=== PATIENT | female | born 2000 | race Caucasian/White ===

== ENCOUNTER 2025-10-23 10:58 | Outpatient (OUT) | payer OTHER, SELFPAY ==
--- OUTSIDE RECORDS SUMMARY | 2025-10-10 14:15 | XMS_ITS | Encounter Summary ---
Author Organization [facility] Address [address] [place] [address] Phone Care Team Providers Care Laundry Pricing Clerk Name Role Phone Shailesh Young MD Primary Care Provider Reason for Referral * Consultation (Routine) - AuthorizedSpecialtyDiagnoses / ProceduresReferred By ContactReferred To ContactCardiology Diagnoses Postural dizziness with near syncope Procedures Follow Up In Cardiology Olga Wilkinson MD [address] [place] [address] Phone: tel: fax: Olga Wilkinson MD [address] [place] [address] Phone: tel: fax: Referral IDStatusReasonStart DateExpiration DateVisits RequestedVisits [id number]/5/202512/5/202611 Reason for Visit * ReasonCommentsFollow-upTilt table test results * Consultation (Routine) - AuthorizedSpecialtyDiagnoses / ProceduresReferred By ContactReferred To ContactCardiology Diagnoses Postural dizziness with near syncope Procedures Follow Up In Cardiology Olga Wilkinson MD [address] [place] [address] Phone: tel: fax: Olga Wilkinson MD [address] [place] [address] Phone: tel: fax: Referral IDStatusReEmmett DateExpiration DateVisits RequestedVisits [id number]/6/202510/6/202611 Encounter Details DateTypeDepartmentCare Team (Latest Contact Info)Bepycdotnvr61/05/2025 2:15 PM ESTOffice [facility] at [facility] [address] [facility] [address] [place] [address] Olga Wilkinson MD [address] [facility] [address] [place] [address] Postural dizziness with near syncope; Encounter to discuss test results; Medication course changed; Other fatigue; Dizziness; Clammy sweat; Never smoked tobacco; Body mass index (BMI) of 20.0 to 20.9 in adult Discharge Disposition: Home Social History Tobacco UseTypesPacks/DayYears UsedDateSmoking Tobacco: NeverSmokeless Tobacco: Current Comments:Vape Alcohol UseStandard Drinks/WeekCommentsNever0 (1 standard drink = 0.6 oz pure alcohol)CommentsUnknownSex and Gender InformationValueDate RecordedSex Assigned at BirthNot on fileLegal HpvFpdawg40/26/2022 2:57 PM ESTGender Identity Not on fileSexual OrientationNot on filedocumented as of this encounter Last Filed Vital Signs Vital SignReadingTime TakenCommentsBlood Hbgfarws419/6610/10/2025 2:39 PM EST Qkvka954710/10/2025 2:10 PM ESTTemperature--Respiratory Rate--Oxygen Saturation-- Inhaled Oxygen Concentration--Folyhh62.9 kg (110 lb)10/10/2025 2:10 PM ESTHeight 157.5 cm (5' 2 )10/10/2025 2:10 PM ESTBody Mass Index20.12112/11/2024 2:10 PM EST documented in this encounter Functional Status * PulseAnswerDate of BvlulaejnqFlxcnc7324/05/2025 2:10 PM Fiorella Lugo MA documented as of this encounter Patient Instructions * Patient Instructions* Ann Head LPN - 10/10/2025 2:15 PM EST Please bring all medicines, vitamins, and herbal supplements with you when you come to the office. Prescriptions will not be filled unless you are compliant with your follow up appointments or have a follow up appointment scheduled as per instruction of your physician. Refills should be requested at the time of your visit. START Lexapro 5mg daily for 2 weeks and may increase 10mg daily if needed. START Vitramin b12 1000mcg daily-over the counter. START Magnesium Oxide 400mg daily-over the counter. documented in this encounter Progress Notes * Olga Wilkinson MD - 10/10/2025 2:15 PM EST Images from the original note were not included. Chief Complaint: Chief Complaint Patient presents with Follow-up Tilt table test results Subjective : Patient is accompanied by her to the office. Review of Systems continues to have palpitations lightheadedness presyncope and extreme fatigue. Has increased dietary sodium intake. Does not really want to take salt tablets, she says she cannot tolerate salt tablets History so Far : 1.Palpitations dizziness presyncope syncope starting at age 17, increasing in frequency and intensity, sometimes associated with chest tightness/heaviness. 2. Echocardiogram December 2023-LVEF 65??5% normal RV systolic function thickening of the anterior mitral valve leaflet without definite prolapse, trivial to mild posteriorly directed mitral regurgitation. RV systolic pressure 31 mmHg 48 the report says that she has 1+ holosystolic mitral regurgitation which is posteriorly directed, and there is moderate thickening and mild prolapse of the anterior mitral leaflet 3. Echocardiogram 2020-LVEF 61% normal chamber dimensions mildly thickened mitral leaflets mild prolapse of the anterior mitral leaflet mild posteriorly directed mitral regurgitation 4. Tilt table test August 2025-patient developed syncope following sublingual nitroglycerin, and her heart rate increased from 100 bpm to 154 bpm with an abrupt drop in blood pressure. Test is consistent with POTS syndrome. Objective Wt Readings from Last 3 Encounters: 10/10/25 49.9 kg (110 lb) 08/11/25 48.1 kg (106 lb) Vitals: 10/10/25 1410 10/10/25 1439 BP: 112/62 106/66 BP Location: Left arm Right arm Patient Position: Sitting Standing Pulse: 72 Weight: 49.9 kg (110 lb) Height: 1.575 m (5' 2 ) Physical Exam: GENERAL APPEARANCE: in no acute distress. CHEST: Symmetric and non-tender. INTEGUMENT: Skin warm and dry HEENT: No gross abnormalities identified.No pallor or scleral icterus. NECK: Supple, no JVD, no bruit. NEURO/PSHCY: Alert and oriented x3; appropriate behavior and responses and responses LUNGS: Clear to auscultation bilaterally; normal respiratory effort. HEART: Rate and rhythm regular with no evident murmur; no gallop appreciated. ABDOMEN: Soft, non tender. MUSCULOSKELETAL: No gross deformities. EXTREMITIES: Warm There is no edema noted. Meds: Current Outpatient Medications Medication Instructions fludrocortisone (FLORINEF) 0.1 mg, 3 times daily Allergies: Penicillins LABS: Testing Reviewed Labs Reviewed all available pertinent laboratory data and diagnostic testing results that occurred afterthe last office visit with me Assessment: 1. Postural dizziness with near syncope Follow Up In Cardiology 2. Encounter to discuss test results 3. Medication course changed 4. Other fatigue 5. Dizziness 6. Clammy sweat 7. Never smoked tobacco 8. Body mass index (BMI) of 20.0 to 20.9 in adult Clinical Decision Making: At this point, patient is already on Florinef. She is not orthostatic in the office however she complains of profound fatigue, and ongoing symptoms of postural lightheadedness and presyncope. We will initiate escitalopram 5 mg p.o. daily for 2 weeks, after which she can increase to 10 mg daily. Escitalopram can sometimes help with POTS. Patient reports that her family members have all responded to escitalopram for depression Vitamin B12 1000 mcg p.o. daily Magnesium oxide 400 mg p.o. daily She may benefit from a low-dose of a stimulant to treat her profound fatigue, I defer that to Dr. Young for to psychiatry if she can get psychiatry appointment. Follow up : 6 weeks I, Ann B. JET ENGINE MECHANIC am scribing for, and in the presence of Dr. Olga Wilkinson MD, FACC. I, Dr. Olga Wilkinson MD, FACC, personally performed the services described in the documentation as scribed by Ann Peterson LPN in my presence, and confirm it is both accurate and complete. documented in this encounter Plan of Treatment DateTypeDepartmentCare Team (Latest Contact Info)Mwnpyvnerlq46/16/2026 3:00 PM ESTOffice Visit at [facility] [address] [facility] [address] [place] [address] Olga Wilkinson MD [address] [facility] [address] [place], [place] [id number] NameTypePriorityAssociated DiagnosesOrder ScheduleVitamin Z97AidTbpkznz Postural dizziness with near syncope Other fatigue Dizziness Clammy sweat Expected: 10/10/2025 (Approximate), Expires: 10/10/2026documented as of this encounter Visit Diagnoses Diagnosis Postural dizziness with near syncope Encounter to discuss test results Other specified counseling Medication course changed Other fatigue Dizziness Dizziness and giddiness Clammy sweat Never smoked tobacco Body mass index (BMI) of 20.0 to 20.9 in adult documented in this encounter Additional Health Concerns AssessmentNoted TimeA fall risk assessment has been completed for the patient 08/11/2025 11:26 AM EDTdocumented as of this encounter Care Teams Team MemberRelationshipSpecialtyStart DateEnd Date Shailesh Young MD [address] [place] [address] PCP - GeneralFamily Zuhajyav67/6/25documented as of this encounter
--- OUTSIDE RECORDS SUMMARY | 2025-10-23 08:30 | XMS_ITS | Encounter Summary ---
Author Organization [facility] Address [address] [place] [address] Care Team Providers Care Head Start Teacher Name Role Phone Unavailable Primary Care Provider Unavailabl e Reason for Visit * ReasonCommentsConsult Encounter Details DateTypeDepartmentCare Team (Latest Contact Info)Jpwxrmeqemj21/18/2025 8:30 AM ESTOffice Visit [facility] [address] [place] [address] Shreya Freitas NP [address] [facility] [place] [address] Menorrhagia with regular cycle; Other fatigue; Pelvic pain; Dyspareunia in female Social History Tobacco UseTypesPacks/DayYears UsedDateSmoking Tobacco: NeverSmokeless Tobacco: NeverCommentsNoSex and Gender InformationValueDate RecordedSex Assigned at BirthNot on fileLegal OweRmythm22/15/2023 6:57 PM EDTGender IdentityNot on fileSexual OrientationNot on filedocumented as of this encounter Last Filed Vital Signs Vital SignReadingTime TakenCommentsBlood Lqlmyzqd87/50112/24/2024 8:47 AM EST Pulse--Temperature--Respiratory Rate--Oxygen Saturation--Inhaled Oxygen Concentration--Fmcusn17.4 kg (109 lb)10/23/2025 8:47 AM ESTHeight--Body Mass Index19.9410/26/2021 12:00 PM ESTdocumented in this encounter Progress Notes * Shreya Freitas NP - 10/23/2025 8:30 AM EST Reason for Appointment: Patient ID: Mary Cazares is a 25 y.o. female who presents for Consult Patient presents today for Acute Visit. MEDICATIONS Current Outpatient Medications Medication Instructions fludrocortisone (FLORINEF) 0.1 mg, 3 times daily ALLERGIES Allergies Allergen Reactions Penicillin G Diphenhydramine Hives Amoxicillin Hives and Unknown Penicillins Hives Other Reaction(s): Unknown Other reaction(s): Unknown Other reaction(s): Unknown Other reaction(s): Unknown PROBLEMS Active Ambulatory Problems Diagnosis Date Noted No Active Ambulatory Problems Resolved Ambulatory Problems Diagnosis Date Noted No Resolved Ambulatory Problems No Additional Past Medical History HISTORY PAST MEDICAL HISTORY SOCIAL HISTORY No past medical history on file. Social History Tobacco Use Smoking status: Never Smokeless tobacco: Never Substance Use Topics Alcohol use: Not on file Drug use: Not on file FAMILY HISTORY No family history on file. SURGICAL HISTORY Past Surgical History: Procedure Laterality Date TONSILLECTOMY REVIEW OF SYSTEMS Review of Systems: Review of Systems Constitutional: Negative. HENT: Negative. Eyes: Negative. Respiratory: Negative. Cardiovascular: Negative. Gastrointestinal: Negative. Genitourinary: Positive for menstrual problem, pelvic pain and vaginal bleeding. Musculoskeletal: Negative. Skin: Negative. Neurological: Negative. All other systems reviewed and are negative. Hematological: Negative. Endocrine: Negative. Allergic/Immunologic: Negative. OBJECTIVE Objective: Physical Exam Constitutional: Appearance: Normal appearance. She is well-developed. Cardiovascular: Rate and Rhythm: Normal rate and regular rhythm. Pulmonary: Effort: Pulmonary effort is normal. Breath sounds: Normal breath sounds. Abdominal: General: Bowel sounds are normal. There is no distension. Palpations: Abdomen is soft. Tenderness: There is no abdominal tenderness. There is no guarding or rebound. Musculoskeletal: General: No swelling. Normal range of motion. Right lower leg: No edema. Left lower leg: No edema. Neurological: Mental Status: She is alert and oriented to person, place, and time. Skin: General: Skin is warm and dry. Psychiatric: Mood and Affect: Mood normal. Behavior: Behavior normal. Vitals and nursing note reviewed. Exam conducted with a christian science reader present. Vitals: Estimated body mass index is 19.94 kg/m?? as calculated from the following: Height as of 10/26/21: 5' 2 . Weight as of this encounter: 109 lb. BP: 92/50 No LMP recorded. Assessment/Plan ICD-10-CM 1. Menorrhagia with regular cycle N92.0 CBC and differential TSH hCG, quantitative, Protime-INR T4, free APTT Hemoglobin A1c APTT 2. Other fatigue R53.83 3. Pelvic pain R10.20 US Pelvis w/ TV 4. Dyspareunia in female N94.10 Assessment/Plan Patient with complaint of irregular menstrual cycles and heavy cycles. She has some complaints of intermittent pelvic pain. She would like to trial the twirla patch and will obtain baseline labs and pelvic ultrasound. Patient will return in 4 weeks for well woman exam and pap and to review results of labs and ultrasound. Documented by Shreya Freitas NP on behalf of: Shreya Freitas NP documented in this encounter Plan of Treatment DateTypeDepartmentCare Team (Latest Contact Info)Sgstxmivilc09/04/2026 9:00 AM ESTProcedure Visit [facility] [address] [place] [address] Shreya Freitas NP [address] [facility] [place] [address] NameTypePriorityAssociated DiagnosesOrder ScheduleCBC and differentialLabRoutine Menorrhagia with regular cycle Ordered: 10/23/2025TSHLabRoutine Menorrhagia with regular cycle Ordered: 10/23/2025hCG, quantitative, pregnancyLabRoutine Menorrhagia with regular cycle Ordered: 10/23/2025Protime-INRLabRoutine Menorrhagia with regular cycle Ordered: 10/23/2025T4, freeLabRoutine Menorrhagia with regular cycle Ordered: 10/23/2025PTTLabRoutine Menorrhagia with regular cycle Expected: 10/23/2025 (Approximate), Expires: 10/23/2026Hemoglobin Y7gJdpWleauie Menorrhagia with regular cycle Ordered: 10/23/2025US Pelvis w/ TVImagingRoutine Pelvic pain Expected: 10/23/2025, Expires: 10/23/2026documented as of this encounter Visit Diagnoses Diagnosis Menorrhagia with regular cycle Other fatigue Pelvic pain Dyspareunia in female documented in this encounter
--- NOTE | 2025-10-23 11:09 | US_ITS ---
The [address] [address] Patient Name: WASHINGTON HENDERSON MRN: [id number] date: 2000 Sex: F Assigned Patient Location: US Current Patient Location: US Accession/Order Number: [id number] Exam Date: 10/23/2025 11:10 Report Date: 10/23/2025 11:46 At the request of: CHETAN DEXTER Procedure: US pelvis w/ transvaginal ULTRASOUND PELVIS WITH TRANSVAGINAL CLINICAL DATA: Abnormal menses COMPARISON: None Real-time ultrasound evaluation of the pelvis was performed utilizing both a transabdominal and transvaginal approach. TRANSABDOMINAL: Estimated uterine size is approximately 6.7 x 4.0 x 5.7 cm. The endometrial lining is estimated at 4-5 mm. No focal myometrial abnormalities are seen. The right ovary is not definitely identified. The left ovary is visualized. No adnexal cysts are noted. TRANSVAGINAL: Transvaginal imaging was performed to better evaluate the uterus and adnexa. By this approach, there are no focal myometrial abnormalities. The endometrial lining is estimated at 4 - 5 mm. Both ovaries are seen. The right ovary measures 2.3 x 1.9 x 2.0 cm. There are small follicles. The left ovary measures 3.1 x 2.0 x 2.1 cm. There are additional follicles measuring up to 14 mm in size. There is documentation of ovarian blood flow. No free fluid is seen. US/US pelvis w/ transvaginal IMPRESSION: WITHIN NORMAL LIMITS. Impression dictated by: Janna Marino M.D. 10/23/2025 11:46 AM Dictation Location: [place] [address] Electronically authenticated by: [id number] Y Date: 10/23/2025 11:46
--- OUTSIDE RECORDS SUMMARY | 2025-10-23 11:09 | XMS_ITS | Encounter Summary ---
Author Organization [facility] Address [address] [facility] [place] [address] Care Team Providers Care Superintendent Menagerie Name Role Phone Unavailable Primary Care Provider Unavailabl e Encounter Details DateTypeDepartmentCare Team (Latest Contact Info)Oyfaeomhurb61/18/2025amboo flowsheet [facility] [address] [facility] [address] [address] Shreya Freitas, CALENDER SUPERVISOR [address] [facility] [place] [address] Social History Tobacco UseTypesPacks/DayYears UsedDateSmoking Tobacco: NeverSmokeless Tobacco: NeverCommentsNoSex and Gender InformationValueDate RecordedSex Assigned at BirthNot on fileLegal MkhSdoroh35/15/2023 6:57 PM EDTGender IdentityNot on fileSexual OrientationNot on filedocumented as of this encounter Plan of Treatment DateTypeDepartmentCare Team (Latest Contact Info)Duorcrbmlrp46/04/2026 9:00 AM ESTProcedure Visit [facility] [address] [address] [address] Shreya Freitas, [place] [address] [facility] [place] [address] documented as of this encounter Visit Diagnoses Not on filedocumented in this encounter
--- OUTSIDE RECORDS SUMMARY | 2025-10-23 11:09 | XMS_ITS | Encounter Summary ---
Author Organization [facility] Address [address] [place] [address] Phone Care Team Providers Care Photostat Operator Name Role Phone Shailesh Young MD Primary Care Provider Encounter Details DateTypeDepartmentCare Team (Latest Contact Info)Zfufapvtyvo93/05/2025Travel Social History Tobacco UseTypesPacks/DayYears UsedDateSmoking Tobacco: NeverSmokeless Tobacco: Current Comments:Vape Alcohol UseStandard Drinks/WeekCommentsNever0 (1 standard drink = 0.6 oz pure alcohol)CommentsUnknownSex and Gender InformationValueDate RecordedSex Assigned at BirthNot on fileLegal PtfZsszuu89/26/2022 2:57 PM ESTGender Identity Not on fileSexual OrientationNot on filedocumented as of this encounter Functional Status * Communicable Disease ScreeningQuestionAnswerDate of AssessmentAuthorDo you have any of the following new or worsening symptoms?None of these10/10/2025 2:01 PM Prema [place] documented as of this encounter Plan of Treatment DateTypeDepartmentCare Team (Latest Contact Info)Uomrvfybbms92/16/2026 3:00 PM ESTOffice Visit [facility] [address] [facility] [address] [place] [address] Olga Wilkinson MD [address] [facility] [address] [place] [address] documented as of this encounter Visit Diagnoses Not on filedocumented in this encounter Additional Health Concerns AssessmentNoted TimeA fall risk assessment has been completed for the patient 08/11/2025 11:26 AM EDTdocumented as of this encounter Care Teams Team MemberRelationshipSpecialtyStart DateEnd Date Shailesh Young MD [address] [place] [address] PCP - GeneralFamily Iryyvphl77/6/25documented as of this encounter
--- OUTSIDE RECORDS SUMMARY | 2025-10-23 11:09 | XMS_ITS | Clinical Summary ---
Author Organization [facility] Address [address] [facility], [address] [place] [address] Care Team Providers Care Bitumen Plant Operator Name Role Phone Eliz Young DC Primary Care Provider Unavailab le Allergies Active AllergyReactionsCriticalityNoted QuyqEdekeladYasnhujxmxmNgmov51/24/2021 IzkiikfnugdQlizf16/24/2021 Social History Tobacco UseTypesPacks/DayYears UsedDateSmoking Tobacco: NeverSmokeless Tobacco: NeverAlcohol UseStandard Drinks/WeekCommentsNever0 (1 standard drink = 0.6 oz pure alcohol)CommentsNoSex and Gender InformationValueDate RecordedSex Assigned at BirthNot on fileLegal BqrGrrsub57/24/2021 2:49 PM EDTGender Identity Not on fileSexual OrientationNot on file Last Filed Vital Signs Vital SignReadingTime TakenCommentsBlood Euwpelin671/7209 3:04 PM EDT Uqrgc87043/24/2021 3:04 PM UZAZavakwhaayq58.4 ??C (97.5 ??F)07/30/2021 3:04 PM EDTRespiratory Zoix662607/30/2021 3:04 PM EDTOxygen Dffpudmcfe53%07/30/2021 3:04 PM EDTInhaled Oxygen Concentration--Smciqi05.1 kg (97 lb 4.8 oz)07/30/2021 3:04 PM PXGMlmgsz498.5 cm (5' 2 )07/30/2021 3:04 PM EDTBody Mass Index17.809 3:04 PM EDT Plan of Treatment Not on file Insurance Care Teams Team MemberRelationshipSpecialtyStart DateEnd Date Eliz Young DC PCP - [facility]07/30/21
--- OUTSIDE RECORDS SUMMARY | 2025-10-23 11:09 | XMS_ITS | Clinical Summary ---
Author Organization [facility] Address [address] [place] [address] Phone Care Team Providers Care Match Up Worker Name Role Phone Shailesh Young MD Primary Care Provider Allergies Active AllergyReactionsCriticalityNoted DateCommentsPenicillinsHivesHigh 07/08/2019 Other reaction(s): Unknown Other reaction(s): Unknown Other Reaction(s): Unknown Other reaction(s): Unknown Other reaction(s): Unknown Other reaction(s):Unknown Other reaction(s): Unknown Medications MedicationSigDispense QuantityRefillsLast FilledStart DateEnd DateStatus fludrocortisone (Florinef) 0.1 mg tablet Take 1 tablet (0.1 mg) by mouth 3 times a day.10/13/2023ctive escitalopram (Lexapro) 5 mg tablet Indications:Postural dizziness with near syncopeTake 1 tablet (5 mg) by mouth once daily. 90 tablet ctive sodium chloride 1,000 mg tablet Indications:Postural dizziness with near syncope,Syncope, unspecified syncope type,DizzinessTake 2 tablets (2 g) by mouth 2 times a day. 360 tablet Discontinued(Therapy completed) Active Problems ProblemNoted DateDiagnosed DateBody mass index (BMI) of 20.0 to 20.9 in adult 10/10/2025Medication course hutkwzo9110/10/2025ody mass index (BMI) 19.9 or less, adult08/11/20255771Tjrdqzmge29/06/2025Postural dizziness with near obkubwf7908/11/2025 Encounter to discuss test jjsrupu8908/11/2025Never smoked loxvmse9708/11/2025Other rilbuhv2108/11/2025lammy sweat08/11/20256223Exefgxv68/06/2025 Resolved Problems ProblemNoted DateDiagnosed DateResolved DateHistory of cvpukqu3308/11/2025 08/11/2025 Encounters DateTypeDepartmentCare OcazAkakoamruvm65/05/2025 2:15 PM ESTOffice Visit [facility] [address] [place] [phone] Olga Wilkinson MD Postural dizziness with near syncope; Encounter to discuss test results; Medication course changed; Other fatigue; Dizziness; Clammy sweat; Never smoked tobacco; Body mass index (BMI) of 20.0 to 20.9 in adult Discharge Disposition: Home10/10/20259279Iyhcxf26/22/2025Orders Only [facility] [address] [place] [address] Olga Wilkinson MD 08/11/2025 11:15 AM EDTOffice Visit [facility] [address] [address] Olga Wilkinson MD Encounter to establish care; Postural dizziness with near syncope; Syncope, unspecified syncope type; Dizziness; Clammy sweat; Other fatigue; Body mass index (BMI) 19.9 or less, adult; Never smoked tobacco Discharge Disposition: Home08/11/2025Telephone [facility] [address] [place] [address] [address] [place] [address] Olga Wilkinson MD 08/11/2025Travelfrom Last 3 Months Family History Medical HistoryRelationNameCommentsNo Known ProblemsBrotherNo Known Problems FatherDiabetes type IIMotherHypertensionSisterRelationNameStatusCommentsBrother FatherMotherSister Social History Tobacco UseTypesPacks/DayYears UsedDateSmoking Tobacco: NeverSmokeless Tobacco: Current Tobacco Cessation:Ready to Q uit: No; Counseling Given: Yes Comments:Vape Alcohol UseStandard Drinks/WeekCommentsNever0 (1 standard drink = 0.6 oz pure alcohol)CommentsUnknownSex and Gender InformationValueDate RecordedSex Assigned at BirthNot on fileLegal BpxHzkjjj66/26/2022 2:57 PM ESTGender Identity Not on fileSexual OrientationNot on file Last Filed Vital Signs Vital SignReadingTime TakenCommentsBlood Soeklagq208/6612 2:39 PM EST Gbjzc307010/10/2025 2:10 PM ESTTemperature--Respiratory Rate--Oxygen Saturation-- Inhaled Oxygen Concentration--Hbpoxw31.9 kg (110 lb)10/10/2025 2:10 PM ESTHeight 157.5 cm (5' 2 )10/10/2025 2:10 PM ESTBody Mass Index20.12112/11/2024 2:10 PM EST Plan of Treatment DateTypeDepartmentCare Team (Latest Contact Info)Zwupfybhoke88/16/2026 3:00 PM ESTOffice Visit at [facility] [address] [facility] [address] [place] [address] Olga Wilkinson MD [address] [facility] [address] [place] [address] Health MaintenanceDue DateLast DoneCommentsHIV Hdivqbimr2002Lipid Panel 2002MMR Vaccines (1 of 1 - Standard series)2003HPV Vaccines (1 - 3- dose series)2017Meningococcal B Vaccine (1 of 2 - Standard)2018 Hepatitis C Agpmbxvok76/25/2020Hepatitis B Vaccines (1 of 3 - 19+ 3-dose series) 1Cervical Cancer Qklpaaqap31/25/2023HPV/Owkyko893Pap Smear 3Diabetes Uomkdlnhp23/07/2023, 12/13/2021Yearly Adult Xzgqctzf57/01/2023, 04/14/2023Influenza Vaccine (#1)2025 10/05/2009, 09/03/2009COVID-19 Vaccine ( - season)2025 DTaP/Tdap/Td Vaccines (3 - Td or Tdap)306/07/2023, 07/28/2015Zoster Vaccines (1 of 2)2052HIB VaccinesAged OutNo longer eligible based on patient's age to complete this topicHepatitis A VaccinesAged OutNo longer eligible based on patient's age to complete this topicIPV VaccinesAged OutNo longer eligible based on patient's age to complete this topicMeningococcal VaccineAged OutNo longer eligible based on patient's age to complete this topic Pneumococcal Vaccine: Pediatrics and At-Risk Adult PatientsAged OutNo longer eligible based on patient's age to complete this topicRotavirus VaccinesAged Out No longer eligible based on patient's age to complete this topic Procedures Procedure NamePriorityDate/TimeAssociated DiagnosisCommentsTILT TABLE1 10:16 AM EDT ECG 12-DGQXIgpmahp35/06/2025 11:15 AM EDT Encounter to establish care Postural dizziness with near syncope Dizziness from Last 3 Months Results * Tilt table (08/27/2025 10:16 AM EDT)Specimen (Source)Anatomical Location / LateralityCollection Method / VolumeCollection TimeReceived Time08/27/2025 10:16 AM EDT [facility] - 08/28/2025 9:37 AM EDT [facility] ?[facility] [address] [place] ?[address] ? [place] [address] ? Cardiology Report ? Signed ? Patient: Lenthe,Mary M ?MR#: [id number] ?? 55 ? : 2000 ?Acct:[id number] ? Age/Sex: 25 / F ?ADM Date: 10//25 ? Loc: EL ?Room: ?Type: DEP CLI ?? Attending Dr: Olga Wilkinson MD ?? Copies to: Olga Wilkinson MD ?? Ivan De Jesus MD ? Ordering Provider: Olga Wilkinson MD ?? Date of Service: 08/27/25 ?? CA/CA tilt table test: Syncope ? HEAD-UP TILT TABLE TEST ? REFERRING PHYSICIAN: Olga Wilkinson MD ? REASON FOR STUDY: Recurrent episodes of syncope. ? PROCEDURE: The patient underwent standard head-up tilt table test. The patient received a total of 250 mL of normal saline and the patient's blood pressure, oxygen saturation, and heart rate monitoring was established. The patient was tilted to the upright position for 30 minutes, during which she demonstrated appropriate and physiologic response to tilt maneuver. Subsequently, nitroglycerin was administered and the patient has excessive heart rate response to exercise with heart rate jumping from 100 up to 154 beats per minute, associated with abrupt drop in blood pressure and induction of syncopal symptomatology. Symptoms improved after the patient was placed in the supine position. ? CONCLUSION: ??Head-up tilt table test positive for hemodynamic response consistent with POTS syndrome. ? RECOMMENDATION: ??The patient was encouraged to increase her fluid and salt intake, wear compression stockings, assume supine position if she develops any prodromal symptoms, and continue her long-term followup with her primary tenter feeder. ? Transcribed By: ? NTS ?08/28/2525 ? Dictated By: ?Ivan De Jesus MD ?08/27/25 1016 ? Signed By: <Electronically signed by MD Ivan De Jesus> ?08/28/25 0937 Authorizing ProviderResult TypeResult StatusOlga Wilkinson MDCV CARDIAC SERVICES PROCEDURESFinal ResultPerforming OrganizationAddressty/State/ZIP CodePhone Number [facility] [address] [place] [address], * ECG 12 Lead (08/11/2025 11:15 AM EDT)Specimen (Source)Anatomical Location / LateralityCollection Method / VolumeCollection TimeReceived Time Narrative CPACS - 08/11/2025 12:09 PM EDT Normal sinus rhythm sinus arrhythmia normal intervals, normal EKG Authorizing ProviderResult TypeResult StatusGekatia Wilkinson MDECG ORDERABLESFinal ResultPerforming OrganizationAddressCity/State/ZIP CodePhone Number CPA from Last 3 Months Insurance Care Teams Team MemberRelationshipSpecialtyStart DateEnd Date Shailesh Young MD [address] [place] [address] [facility] Ngvoqcgg25/6/25
--- OUTSIDE RECORDS SUMMARY | 2025-10-23 11:09 | XMS_ITS | Clinical Summary ---
Author Organization [facility] Address [address] [place] [address] Care Team Providers Care Video Game Producer Name Role Phone Unavailable Primary Care Provider Unavailabl e Allergies Active AllergyReactionsCriticalityNoted DateCommentsAmoxicillinHives,Unknown 07/08/20198787BpeiwdczbzudfajQgyfqAeavat79/19/2022Penicillin GHigh10/23/2025 FvalruoiblxMbicl27/02/2019 Other Reaction(s): Unknown Other reaction(s): Unknown Other reaction(s): Unknown Other reaction(s): Unknown Medications MedicationSigDispense QuantityRefillsLast FilledStart DateEnd DateStatus fludrocortisone (Florinef) 0.1 MG tablet Take 0.1 mg by mouth in the morning and 0.1 mg at noon and 0.1 mg in the evening.3Active Levonorg-Eth Estr, Transderm, (Twirla) 120-30 MCG/24HR patch weekly Indications:Menorrhagia with regular cyclePlace 1 patch on the skin 1 (one) time per week for 28 days Apply 1 patch each week for 3 weeks, then remove for 1 week. 3 patch 111501/6Active Encounters DateTypeDepartmentCare TylpTxvnmvlmojs45/18/2025 8:30 AM [place]Office [place] [phone] Shreya Freitas NP Menorrhagia with regular cycle; Other fatigue; Pelvic pain; Dyspareunia in dkmsmq6710/23/2025amboo flowsheet [place] [address] Shreya Freitas NP from Last 3 Months Family History RelationNameStatusCommentsFatherAliveMotherAlive Social History Tobacco UseTypesPacks/DayYears UsedDateSmoking Tobacco: NeverSmokeless Tobacco: Never Tobacco Cessation:Counseling Given: Not Answered CommentsNoSex and Gender InformationValueDate RecordedSex Assigned at BirthNot on fileLegal RhmAsujgo49/15/2023 6:57 PM EDTGender IdentityNot on file Sexual OrientationNot on file Last Filed Vital Signs Vital SignReadingTime TakenCommentsBlood Huxnpbna84/50112/24/2024 8:47 AM EST Ottux22767/06/2025 1:56 PM ODFEtftxznlbpr27.7 ??C (99.9 ??F)03/11/2025 1:56 PM EDTRespiratory Rate--Oxygen Mhgehjuhdm33%03/11/2025 1:56 PM EDTInhaled Oxygen Concentration--Xttpqg66.4 kg (109 lb)10/23/2025 8:47 AM KHPLxychn468.5 cm (5' 2 )10/26/2021 12:00 PM ESTBody Mass Index19.9410/26/2021 12:00 PM EST Plan of Treatment DateTypeDepartmentCare Team (Latest Contact Info)Kljkrmxznpt87/04/2026 9:00 AM ESTProcedure Visit [facility] [address] [place] [address] Shreya Freitas, [place] [address] [address] Insurance
--- OUTSIDE RECORDS SUMMARY | 2025-10-23 11:10 | XMS_ITS | Clinical Summary ---
Author Organization [facility] Address [address] [place] [address] Care Team Providers Care Drive Shaft And Steering Post Repairer Name Role Phone Jose Angel Sanchez NP Primary Care Provider [phone] Allergies Active AllergyReactionsCriticalityNoted YxqlMctutexvCvruunbkibfWnhlo65/02/2019 Other reaction(s): Unknown Other reaction(s): Unknown Medications MedicationSigDispense QuantityRefillsLast FilledStart DateEnd DateStatus medroxyPROGESTERone (DEPO-PROVERA) 150 mg/mL injection Inject 150 mg intramuscularly.12/11/2023ctive fludrocortisone (FLORINEF) 0.1 mg tablet Take 1 tablet by mouth three times a day.10/13/2023ctive midodrine (PROAMITINE) 5 mg tablet Take 1 tablet by mouth two times a day.10/13/2023ctive meclizine (ANTIVERT) 25 mg tab Take 25 mg by mouth.10/13/2023ctive sertraline (ZOLOFT) 25 mg tablet Take 1 tablet by mouth every afternoon.12/11/2023ctive Social History Tobacco UseTypesPacks/DayYears UsedDateSmoking Tobacco: Some DaysSmokeless Tobacco: Never Tobacco Cessation:Ready to Q uit: Not Asked; Counseling Given: Not Answered Comments:Vaping now! Alcohol UseStandard Drinks/WeekCommentsYes0 (1 standard drink = 0.6 oz pure alcohol)rarelyArea Deprivation IndexAnswerDate RecordedNational Score (1-100), lower number is lower mdbc141412/22/2023State Score (1-10), lower number is lower ziey78212/22/2023ata from: https://www.neighborhoodatlas.[facility]/. Last address used for lmxicrryr[address] [place], [place] [address]CommentsNoSex and Gender InformationValueDate RecordedSex Assigned at BirthNot on fileLegal Sex Cexflf1210/10/2023 1:36 PM ESTGender IdentityNot on fileSexual OrientationNot on file Last Filed Vital Signs Vital SignReadingTime TakenCommentsBlood Pressure--Pulse--Temperature-- Respiratory Rate--Oxygen Xrmgvuacuj27%12/22/2023 10:06 AM ESTInhaled Oxygen Concentration--Oasqms45.3 kg (102 lb)12/22/2023 9:20 AM ZPFGdvkgk607.5 cm (5' 2 )12/22/2023 9:20 AM ESTBody Mass Index18.66012/22/2023 9:20 AM EST Plan of Treatment Health MaintenanceDue DateLast DoneCommentsPeds To Adult Transition Initial Oabkfexrex32/25/2014Peds To Adult Transition Annual Zfugxpgzrp71/25/2016HPV Vaccine (1 - 3-dose series)2017Meningococcal B Vaccine (1 of 2 - Standard) 2018Anxiety Rhhxyoirq84/25/2020Chlamydia Screening (18-24)2020 Depression Nseouecjm50/25/2020GC (Gonorrhea) Screening (18-24)2020HIV Hltempisg86/25/2020Hepatitis C Crjgaowyr58/25/2020Hepatitis B Vaccine (1 of 3 - 19+ 3-dose series)1Pneumococcal Vaccine (1 of 2 - PCV)2021 Cervical Cancer Ragltatkk51/25/2023Covid-19 Vaccine (1 - 2024- season) 2025Influenza Vaccine (#1), 09/03/2009DTaP,Tdap,Td Vaccine (3 - Td or Tdap)/07/2023, 07/28/2015 Insurance Care Teams Team MemberRelationshipSpecialtyStart DateEnd Date Jose Angel Sanchez, [place] [address] [place] [phone] PCP - GeneralNurse Practitioner12/22/23
--- OUTSIDE RECORDS SUMMARY | 2025-10-23 11:10 | XMS_ITS | Clinical Summary ---
Author Organization [facility] Address [address] [place] [address] Care Team Providers Care Polymer Scientist Name Role Phone Jose Angel Sanchez Ruby STREETERN-SPEECH LANGUAGE ASSISTANT Primary Care Provider Allergies Active AllergyReactionsCriticalityNoted NhufPhocwzkeFfgionopwhiPnybl26/07/2022 SvmcyhewhuxamfbHbvrbQudetm92/19/1613DhmzgpwhianWmibc15/02/2019 Other reaction(s): Unknown Medications MedicationSigDispense QuantityRefillsLast FilledStart DateEnd DateStatus fludrocortisone 0.1 MG tablet Indications:Orthostatic hypotensionTake 1 tablet by mouth 3 times daily. 90 tablet ctive Albuterol 108 (90 Base) MCG/ACT Aero Soln inhaler 10/07/2024ctive benzonatate 200 MG capsule 10/07/2024ctive Ipratropium 0.06 % Solution 10/07/2024ctive Lidocaine HCl (Lidocaine viscous) 2 % Solution 10/07/2024ctive Active Problems ProblemNoted DateDiagnosed DateOrthostatic cvxqjmzsyle14/08/2023Social anxiety graqrtwo41/08/2023ontusion of knee03/01/2022Minor head scgfdi3003/01/2022yncope 01/10/2022Mildly underweight adult01/10/2022 Immunizations ImmunizationAdministration DatesNext DueTdap Fwcraph7204/14/2023 Social History Tobacco UseTypesPacks/DayYears UsedDateSmoking Tobacco: NeverSmokeless Tobacco: Never Tobacco Cessation:Counseling Given: Yes Alcohol UseStandard Drinks/WeekCommentsNot Currently0 (1 standard drink = 0.6 oz pure alcohol)DepressionAnswerDate RecordedPHQ-9 Total Score (Interpretation of Total Score 1-4 = Minimal depression; 5-9 = Mild depression; 10-14 = Moderate depression; 15-19 = Moderately severe depression)regnantCommentsNo Sex and Gender InformationValueDate RecordedSex Assigned at BirthNot on file Legal YscRpluvf43/08/2020 4:16 PM ESTGender IdentityNot on fileSexual OrientationNot on file Last Filed Vital Signs Vital SignReadingTime TakenCommentsBlood Mdyftkdz503/8510/09/2024 11:25 AM EST Dxplk46988/04/2024 11:25 AM NPVVhfjvmzuqke50.2 ??C (98.9 ??F)10/09/2024 11:25 AM ESTRespiratory Lbnv674712/10/2023 11:25 AM ESTOxygen Eqjuwlvrnj13%10/09/2024 11:25 AM ESTInhaled Oxygen Concentration--Vxavrf18 kg (108 lb)09/15/2024 4:30 PM EST Iauhfy850.5 cm (5' 2 )09/15/2024 4:30 PM ESTBody Mass Index19.7511 4:30 PM EST Plan of Treatment Health MaintenanceDue DateLast DoneCommentsHPV VACCINE (1 - 3-dose series) 2017CHLAMYDIA IKANFF45/07/2023 (Declined)GONORRHEA SCREEN /07/2023 (Declined)PREVENTATIVE HEALTH VISITHEP B VACCINE (2 of 2 - CpG 2-dose series) (Declined)HPV VACCINE ADOL (2 - 3-dose series)/05/2024 (Declined)PAP SMEAR07/13/2024 07/13/2021 (Previously completed)INFLUENZA VACCINE (#1) (Declined), 10/05/2009, 09/03/20098623GYDTFCO42/09/203306/07/2023, 07/28/2015 HEPATITIS C VIRUS XARWIVDNPElhidmjhe05/23/2022 (Declined)Overridden with the intention of not completing the topicHIV SCREENING PIZJRQYQLOIdptsaapu66/23/2022 (Declined)Overridden with the intention of not completing the topicTDAP (ADULT) Jujjtypmp74/09/2023, 07/28/2015COVID-19 VACCINEDiscontinuedPNEUMOCOCCAL VACCINE SERIESAged OutNo longer eligible based on patient's age to complete this topic Insurance Care Teams Team MemberRelationshipSpecialtyStart DateEnd Date Jose Angel Sanchez, GENERAL FARM MANAGER-SPEECH LANGUAGE ASSISTANT PCP - GeneralCertified Nurse Practitioner12/13/21
[2025-10-23 11:57] LABS: Hematocrit 39.5 % (36.0-48.0); Hemoglobin 13.2 g/dL (12.0-16.0); Immature Granulocytes Abs Auto 0.01 10^3/uL (0.00-0.03); Immature Granulocytes Pct Auto 0.2 % (0.0-0.5); Lymphocytes Absolute Auto 1.7 10^3/uL (1.2-3.8); Mean Corpuscular HGB Conc 33.4 g/dL (29.9-35.2); Mean Corpuscular Hemoglobin 29.5 pg (26.7-34.0); Mean Corpuscular Volume 88.4 fL (81.0-99.0); Platelet Count 254 10^3/uL (150-450); Red Blood Count 4.47 10^6/uL (4.20-5.40); White Blood Count 5.4 10^3/uL (4.0-11.0)
[2025-10-23 12:25] LABS: INR 1.15; Prothrombin Time 12.0 sec (9.0-11.6)
[2025-10-23 13:00] LABS: Thyroid Stimulating Hormone 1.354 uIU/mL (0.358-3.740)
== END 2025-10-23 10:59 | disposition home or self-care (01) ==
PROVIDERS: Visit Provider Nurse Practitioner Family
DX: N92.0 Excessive and frequent menstruation with regular cycle (principal); R10.20 Pelvic and perineal pain unspecified side
CPT/HCPCS: 36415; 76830; 76856; 83036; 84439; 84443; 84702; 85025; 85610